=== PATIENT | male | born 1980 | race Caucasian/White ===

== ENCOUNTER 2018-08-19 05:24 | Inpatient (IN) | payer OTHER ==
[2018-08-18 21:15] VITALS: BP 144/88
[~2018-08-19] VITALS: Ht 182.9 cm; Wt 215.5 kg
--- NOTE | ~2018-08-19 | O ---
[facility] [place] [address] OPERATIVE REPORT Name: JANNY MENDIETA Room #: 150-5 [facility]..#: [id number] Admission: 08/19/18 Attend Phys: Calvin Reid MD Discharge: Date of : 78 Report #: [id number] THIS REPORT FOR: //name// CC: ELLIE Reid Physician staff DATE OF SERVICE: 08/19/2018 PREOPERATIVE DIAGNOSIS: Left medial malleolar fracture. POSTOPERATIVE DIAGNOSIS: Left medial malleolar fracture. PROCEDURE: Left medial malleolus open reduction and internal fixation. SURGEON: Calvin Reid MD ALTERATION TAILOR: Lisa Taylor. ANESTHESIA: General. ESTIMATED BLOOD LOSS: Minimal. DRAINS: None. TOURNIQUET TIME: 30 minutes. The certified surgical technician was required due to the patient's obesity. DESCRIPTION OF PROCEDURE: The patient brought to the operating room, where he was placed under general anesthesia. Once under adequate general anesthesia, his left lower extremity was prepped and draped in sterile manner. The extremity was elevated, exsanguinated, tourniquet placed to 350 mmHg. A medial incision approximately 6 cm in length was made over the medial malleolus. Dissection was carried down to the medial malleolar fracture, which was subsequently identified and a drill hole was placed proximal to this. Subsequent reduction was then achieved with a bone reduction tenaculum. Excellent reduction was achieved. Once reduced, the fracture was fixed with 3 cannulated screws. Two 4.0 cannulated screws were placed, partial thread, first and then a fully threaded 4.5 mm cannulated screw was placed. Excellent fixation and alignment was achieved in this manner as verified under fluoroscopy. The wound was irrigated copiously and closed with 2-0 Vicryl in deep and subcutaneous tissues. [place] were used for the skin. The wounds were dressed with Xeroform, 4 x 4s, and sterile soft compressive dressing with a short leg cast was placed. Tourniquet was let down at 30 minutes. Toes were pink and warm with good capillary refill. There were no complications from the [facility] [address] [place] [address] OPERATIVE REPORT Name: JANNY MENDIETA Room #: 150-5 [facility]..#: [id number] Admission: 08/19/18 Attend Phys: Calvin Reid MD Discharge: Date of : 78 Report #: [id number] procedure. The patient tolerated the procedure well and went to recovery room without incident. By: [id number] Calvin Reid MD /nt
[~2018-08-19 05:24] MED LIST: ADVAIR HFA 230M12 GM INH; FLEXERIL PO; LAMICTAL200 MG PO; PERCOCET 7.5-31 EACH PO; PROAIR HFA8.5 GM INH
[2018-08-19 12:51] VITALS: BP 148/85
[2018-08-19] MEDS ORDERED: ASA5UEC PO (14:51)
[2018-08-19 15:42] VITALS: BP 148/85
[2018-08-19 19:30] VITALS: BP 144/88
[2018-08-20 06:41] VITALS: BP 136/79
[2018-08-20 08:17] VITALS: BP 135/71
[2018-08-20 13:08] VITALS: BP 145/85
[2018-08-20 15:33] LABS: HEMATOCRIT 41.2 % (42.0-52.0); HEMOGLOBIN 14.1 gm/dL (14.0-18.0); MCHC 34.1 g/dL (28.0-37.0); MCV 93.9 fL (80.0-100.0); RBC 4.39 mil/uL (4.50-6.00); WBC 8.6 thou/uL (4.0-11.0)
[2018-08-20 15:47] LABS: CALCIUM 9.1 mg/dL (8.5-10.1); CREATININE 1.1 mg/dL (0.7-1.3); MAGNESIUM 1.9 mg/dL (1.8-2.4); POTASSIUM 4.6 mmol/L (3.5-5.1)
== END 2018-08-20 20:30 | DRG 493 ==
LOC: OR 05:24 → TBA 05:24 → OR 06:33 → 4E 18:36 → OR 08-20 05:13 → 4E 08-20 20:30
PROVIDERS: Internal Medicine
PROC: 0QSH04Z Reposition Left Tibia with Internal Fixation Device, Open Approach (ICD-10-PCS; principal; 2018-08-19)
DX: S82.52XA Displaced fracture of medial malleolus of left tibia, initial encounter for closed fracture (principal); Z68.44 Body mass index [BMI] 60.0-69.9, adult; F32.9 Major depressive disorder, single episode, unspecified; J45.909 Unspecified asthma, uncomplicated; G47.33 Obstructive sleep apnea (adult) (pediatric); E66.01 Morbid (severe) obesity due to excess calories; Z88.1 Allergy status to other antibiotic agents; Z79.899 Other long term (current) drug therapy; W18.39XA Other fall on same level, initial encounter; Z79.82 Long term (current) use of aspirin; Y93.89 Activity, other specified; Y92.89 Other specified places as the place of occurrence of the external cause; Y99.8 Other external cause status
CPT/HCPCS: 10783; 50010; 50101; 50386; 50679; 51122; 51412; 56524; 56525; 57091; 57181; 62110; 62900; 70005

== ENCOUNTER 2018-08-20 17:22 | Inpatient (IN) | payer OTHER ==
[~2018-08-20] VITALS: Ht 182.9 cm; Wt 215.5 kg
--- NOTE | ~2018-08-20 | H ---
[facility] [place] [address] [place] [address] HISTORY AND PHYSICAL Name: JANNY MENDIETA Room #: 510-P ADM IN M.R.#: [id number] Admission: 08/20/18 Attend Phys: Agustin Robison MD Discharge: Date of : 78 Report #: [id number] THIS REPORT FOR: //name// CC: Agustin SPENCE DATE OF SERVICE: 08/20/2018 HISTORY AND PHYSICAL/POSTADMISSION PHYSICIAN EVALUATION HISTORY OF PRESENT ILLNESS: The patient is a 38-year-old white male with history of morbid obesity. He was at work in [place], [place], and apparently had a fall while at work. He was initially seen in the Emergency Room, placed in a soft splint. He was trying to get around with crutches. He was having more and more difficulty, unable to care for himself. He was able to fly back to [place], admitted to [facility], and noted to have a left medial malleolus fracture and underwent open reduction and internal fixation on 08/19/[address] Reid. He is limited to nonweightbearing for approximately 4 weeks. He has been on DVT prophylaxis with Lovenox. He is morbidly obese and has a history of obstructive sleep apnea. He has been admitted for acute in-hospital inpatient rehabilitation. Please see my consult note dictation from yesterday and Trisha Child's history and physical from today. Please see the noted past medical history, allergies, current medications, code status, habits, and social history. REVIEW OF SYSTEMS: No current complaints of chest pain, shortness of breath or abdominal discomfort. PHYSICAL EXAMINATION: GENERAL: A 38-year-old morbidly obese white male, no obvious distress. Alert and oriented. Cranial nerves grossly intact. Facies are symmetric. The patient was seen earlier. VITAL SIGNS: Temperature 98.7, blood pressure 145/85, respirations 18, pulse 90. HEENT: Appeared benign. CHEST: Sounded clear to auscultation. CARDIAC: Regular rate and rhythm. ABDOMEN: Bowel sounds positive, nontender, morbidly obese. MUSCULOSKELETAL: Functional range of motion of bilateral upper extremities, no tremors, offshore wind turbine technician are equal, strength 4 to 4-/5. Lower extremities, left lower extremity with hard cast, neurovascularly intact, can lift left lower extremity to antigravity. Right lower extremity strength is probably a grade 4+/5. He has been working on sliding board transfers with min assist. ASSESSMENT: [address] [address] HISTORY AND PHYSICAL Name: JANNY MENDIETA Room #: 510-P [facility] IN [facility]#: [id number] Admission: 08/20/18 Attend Phys: Agustin Robison MD Discharge: Date of : 78 Report #: [id number] 1. Left medial malleolar fracture, status post open reduction and internal fixation on 08/19/2018, nonweightbearing on left lower extremity. 2. Morbid obesity, 475 pounds. 3. Obstructive sleep apnea. 4. Deep venous thrombosis prophylaxis. The patient was switched by Orthopedics at the time of discharge and he is now on aspirin 325 mg 1 p.o. b.i.d. PLAN: From a postadmission physician evaluation perspective, there are no relevant changes since the preadmission screening. Please see the above review of prior and current medical and functional conditions and comorbidities. Please see the previous and current functional status. He was premorbidly fully independent. As far as risk of complications, this includes his medical comorbidities. He is on DVT prophylaxis with the aspirin b.i.d. as per Orthopedics. The initial plan of care involves the interdisciplinary acute inpatient rehabilitation program with PT and OT working with him, rehab nursing assisting regarding medication management, skin care prophylaxis, bowel and bladder issues, and nursing education. Case management will be involved as well as the interdisciplinary acute inpatient rehabilitation program. Measurable functional goals would be for the patient to become modified independent with transfers, mobility, ADLs, so that he can hopefully return back to his prior living situation. Prognosis is reasonably good with the estimated length of stay probably at least 1-2 weeks or depending progress. We will need to see how things work as far as trying to get him back into the home setting. Potential barriers would include his medical comorbidities and the equipment situation to get him back into the home setting. <ELECTRONICALLY SIGNED> By: Agustin Robison MD 08/28/18 1144 1347 1402 Agustin Robison MD /nt
--- NOTE | ~2018-08-20 | H ---
[facility] [place] [address] HISTORY AND PHYSICAL Name: JANNY MENDIETA Room #: 510-P [facility] IN ..#: [id number] Admission: 08/20/18 Attend Phys: Agustin Robison MD Discharge: 08/29/18 Date of : 78 Report #: [id number] THIS REPORT FOR: //name// CC: Agustin SPENCE DATE OF SERVICE: 08/20/2018 HISTORY OF PRESENT ILLNESS: This is a 38-year-old morbidly obese male who was admitted to the hospital after a fall while he was at work. He sustained a left medial malleolus fracture and he underwent an open reduction and internal fixation by Dr. Reid on 08/19/2018. He is no weightbearing for approximately 4 weeks on the left lower extremity. Due to his decline in functional mobility, he will be admitted to acute inpatient rehabilitation for physical and occupational therapies. Today, the patient reports increased in muscle spasms and cramping in the left ankle up to his left hip. His pain is very poorly controlled. He had a hives reaction with itching to the oxycodone and he was changed to hydrocodone and that is not controlling his pain as well per patient report. He has his home CPAP and wears that anytime he is resting. Otherwise, denies dizziness, headache. Denies cough, chest pain or shortness of air. Denies nausea or abdominal pain. He is constipated. Denies any urinary symptoms. He also reports chronic back pain. Denies any leg swelling. PAST MEDICAL HISTORY: Obesity, obstructive sleep apnea, COPD. ALLERGIES: ERYTHROMYCIN. CURRENT MEDICATIONS: Norflex 100 mg twice a day, Colace 100 mg twice a day, Benadryl 25 mg q.8 hours p.r.n., hydrocodone two tablets q.4 hours p.r.n., Lamictal 200 mg at bedtime, Flexeril 10 mg at bedtime, aspirin 325 twice a day, milk of mag 10 mL daily p.r.n., Senokot 8.6 mg daily p.r.n. CODE STATUS: Full code. HABITS: He is a nonsmoker, no illicit drug use, has alcohol on social occasions. SOCIAL HISTORY: The patient lives in a duplex with his . There is one threshold step to enter and then all living is on 1 level. He utilized no assistive device premorbidly. He was independent with all ADLs and shares IADLs with his . He was driving, premorbid. 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 REVIEW OF SYSTEMS: Remainder of his 14-point review of systems negative except as listed in HPI. [facility] [address] [place] [address] HISTORY AND PHYSICAL Name: COLIN MENDIETABILL Velarde Room #: 510-P DIS IN M.R.#: [id number] Admission: 08/20/18 Attend Phys: Agustin Robison MD Discharge: 08/29/18 Date of : 78 Report #: [id number] PHYSICAL EXAMINATION: VITAL SIGNS: Blood pressure 145/85, respirations 18, pulse rate 90, temperature 97.8, he is 96% oxygen on room air. GENERAL: He is awake, alert. He is oriented x 4. He is in no acute distress. He is on room air. HEENT: Head is normocephalic. Eyes: EOMs are intact. No icterus. ENT: No sinus tenderness, no pharyngitis, no rhinorrhea. NECK: No lymphadenopathy. HEART: Regular rate and rhythm, S1, S2. CHEST: Diminished in the bases. No crackles, no wheeze. ABDOMEN: Morbid obesity. Bowel sounds are positive, soft, nontender. His weight is 475 pounds. SKIN: He does have hives on his anterior and posterior chest wall along with into his groin area, they seem to be resolving. MUSCULOSKELETAL: He has functional range of motion of bilateral upper extremities. He has no clonus in the wrist. No tremors. [place] are equal bilaterally. Strength upper extremities grossly 4/5 to 4-/5. Left lower extremity in hard cast, neurovascularly intact. Able to lift bilateral lower extremities to anti-gravity. Negative Homans sign on the right lower extremity. The patient was able to transfer with slide board and min assist. He has not been up to attempt ambulation yet. He requires min to mod assist with bed mobility. NEUROLOGIC: Cranial nerves 2-12 grossly intact. PSYCHIATRIC: Pleasant affect. LABORATORY DATA: From 08/21/2018, sodium 136, potassium 4.1, BUN 13, creatinine 0.9, calcium 8.8. WBC is 8.5, hemoglobin 13.3, hematocrit 39.6, platelets 225. IMPRESSION: 1. Left medial malleolar fracture, status post open reduction and internal fixation on 08/19/2018, no weightbearing left lower extremity for approximately 4 weeks. 2. Morbid obesity, 475 pounds. 3. Obstructive sleep apnea. PLAN: The patient is being admitted to acute inpatient rehabilitation unit for physical and occupational therapies. He has already been ordered through his workmen's bariatric lift chair, bariatric commode, bariatric bed and probable slide board along with a bariatric shower chair. Social work services will continue to follow for discharge planning needs. We will need to be able to transfer himself independently to return back to his prior level as his will not be home during the day to assist him. Hospitalist services will follow for acute medical issues. He will have Dr. Delgado evaluation for [facility] [address] [place] [address] HISTORY AND PHYSICAL Name: JANNY MENDIETA Room #: 510-P DIS IN ..#: [id number] Admission: 08/20/18 Attend Phys: Agustin Robison MD Discharge: 08/29/18 Date of : 78 Report #: [id number] neuropsychology testing. His muscle relaxers were adjusted today for better pain control, please see orders. <ELECTRONICALLY SIGNED> By: MARGE Phillips 08/29/18 1508 1119 1147 MARGE Phillips /nt
--- NOTE | ~2018-08-20 | HC ---
[facility] [address] [address] CONSULTATION Name: JANNY MENDIETA Room #: 510-P [facility] IN .R.#: [id number] Admission: 08/20/18 Attend Phys: Agustin Robison MD Discharge: Date of : 78 Report #: [id number] THIS REPORT FOR: //name// CC: Agustin SPENCE DATE OF SERVICE: 08/20/2018 HISTORY OF PRESENT ILLNESS: The patient is a 38-year-old white male with history of morbid obesity, was at work in [place], [place], apparently had a fall while at work. He was initially seen in the Emergency Room, placed in a soft splint, was trying to get around with crutches. He was having more and more difficulty, unable to care for himself. He was able to fly back to [place], was admitted to [facility], noted to have a left medial malleolus fracture and now has undergone open reduction and internal fixation on 08/19/2018, by Dr. Reid. He is limited to nonweightbearing for approximately 4 weeks. He is on DVT prophylaxis with Lovenox. He is morbidly obese and has history of obstructive sleep apnea. We are seeing him in rehabilitation medicine consultation. PAST MEDICAL HISTORY: As noted above. MEDICATIONS: Please see the full medication listing. This includes vitamins, herbals, and supplements per report. ALLERGIES: ERYTHROMYCIN BASE, CAUSING NAUSEA AND VOMITING. HABITS: Occasional alcohol usage, nonsmoker. SOCIAL HISTORY: Lives with in a duplex, one step in, which is really more of a threshold. Then, it is on one floor. He did not utilize any gait aids premorbidly. works. He was able to do all of his own ADLs. He did his own bathing. It sounds like his helped some with his pannus and proper cleaning premorbidly. REVIEW OF SYSTEMS: He did not offer any current complaints of chest pain, shortness of breath, or abdominal discomfort. Some discomfort in left ankle as expected. PHYSICAL EXAMINATION: GENERAL: Morbidly obese, pleasant 38-year-old white male in no obvious distress. He is noted to be 6 feet and 475 pounds. Facies are symmetric. HEENT: Appeared to be benign. EXTREMITIES: Functional range of motion of both upper extremities without obvious focal weakness. DTRs are 1. ABDOMEN: Morbidly obese with a significant pannus. [address] [address] CONSULTATION Name: JANNY MENDIETA Room #: 510-P [facility] IN ..#: [id number] Admission: 08/20/18 Attend Phys: Agustin Robison MD Discharge: Date of : 78 Report #: [id number] NEUROLOGIC: Right lower extremity, no obvious focal weakness. Left lower extremity, he has the short leg cast in place. Skin, wiggle his toes. Bed mobility, standby assistance [id number] is max assist. He could stand with a roller walker for just a few seconds. He did better; however, with the sliding board and was able to scoot with more of a min assist. ASSESSMENT: A 38-year-old white male with the following problem list: 1. Left medial malleolar fracture, status post open reduction and internal fixation on 08/19/2018, nonweightbearing. 2. Morbid obesity, 475 pounds. 3. Obstructive sleep apnea. 4. Deep venous thrombosis prophylaxis. PLAN: Agree he would benefit from a short acute in-hospital inpatient rehabilitation stay. Discussion with the patient's . Goal would be to maximize independence at a wheelchair level utilizing the sliding board. Depending upon progress may need to consider hospital bed and a bariatric commode. These equipment issues will need to be worked on and assessed while he is on the rehab pan. Insurance precertification to be obtained. Discussion with the patient and , who were in full agreement of plan. <ELECTRONICALLY SIGNED> By: gAustin Robison MD 08/28/18 1144 1616 0010 Agustin Robison MD /nt
--- NOTE | ~2018-08-20 | PLAN ---
[facility] [place] [address] REHAB UNIT PLAN OF CARE Name: JANNY MENDIETA Room #: 510-P ADM IN M.R.#: [id number] Admission: 08/20/18 Attend Phys: Agustin Robison MD Discharge: Date of : 78 Report #: [id number] THIS REPORT FOR: //name// CC: Agustin SPENCE DATE OF SERVICE: 08/22/2018 SUBJECTIVE: The patient is seen back today in followup. He is in no distress. OBJECTIVE: VITAL SIGNS: Last recorded temperature 98.2, pulse 86, respirations 18, blood pressure 127/80. He is alert, pleasant, oriented. HEENT: Appeared to be benign. CHEST: Sounded clear. CARDIAC: Regular rate and rhythm. ABDOMEN: Bowel sounds positive, nontender. EXTREMITIES: Right calf, no swelling. Has good strength in right lower extremity. Left lower extremity cast is in place, can wiggle the toes. He is independent with bed mobility, but mod assist as needed with bed to chair transfers. Upper body dressing, supervision, lower body dressing is max assist. The bed to chair transfers are utilizing the sliding board. ASSESSMENT: 1. Left medial malleolar fracture, status post open reduction and internal fixation on 08/19/2018, nonweightbearing. 2. Morbid obesity, 475 pounds. 3. Obstructive sleep apnea. 4. Deep venous thrombosis prophylaxis, he is on aspirin b.i.d. PLAN: The overall plan of care is based on the preadmission screen, post-admission physician evaluation and information garnered from therapy assessments. 1. Estimated length of stay is probably at least 1-2 weeks pending progress. 2. Medical prognosis is reasonably good. 3. Anticipated interventions includes the interdisciplinary acute inpatient rehabilitation program with PT, OT, rehab nursing working with him and the interdisciplinary acute inpatient rehabilitation program. 4. Anticipated functional outcomes would be for him to become modified independent with basic transfers utilizing a sliding board or stand pivot and arranging via a proper equipment so he can return back home with his , checking in on him. 5. Discharge destination would be home with as noted above. 6. Expected therapy by discipline [address] [address] REHAB UNIT PLAN OF CARE Name: JANNY MENDIETA Room #: 510-P ADM IN [facility].#: [id number] Admission: 08/20/18 Attend Phys: Agustin Robison MD Discharge: Date of : 78 Report #: [id number] includes PT and OT 1 to 1-1/2 hours per day each five days a week throughout the duration of the acute inpatient [facility] stay. <ELECTRONICALLY SIGNED> By: Agustin Robison MD 08/28/18 1144 0858 1450 Agustin Robison MD /PMT
--- NOTE | ~2018-08-20 | HC ---
[facility] [place] [address] CONSULTATION Name: JANNY MENDIETA Room #: 510-P [facility] IN ..#: [id number] Admission: 08/20/18 Attend Phys: Agustin Robison MD Discharge: 08/29/18 Date of : 78 Report #: [id number] THIS REPORT FOR: //name// CC: Agustin Robison ELLIE JORDY DATE OF SERVICE: 08/24/2018 PSYCHOLOGICAL CONSULTATION ATTENDING PHYSICIAN: Agustin Robison MD BIBLE READER: Tien Delgado, PhD CLINICAL PRESENTATION: The patient is a 38-year-old morbidly obese male admitted to the rehabilitation unit for an inpatient program to improve functional mobility and activities of daily living and self-care secondary to a left medial malleolar fracture. He is status post open reduction and internal fixation on 08/19/2018 and no weightbearing for approximately 4 weeks. The patient is morbidly obese at 475 pounds. He also has been diagnosed with obstructive sleep apnea. 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 He slipped on ice that led to his sustaining a fracture. The patient is without children. He is a college graduate. A prior history of treatment for depression/mood disorder is reported. He has been taking medication as a mood stabilizer for the last 8-9 years. Psychological consultation was requested to provide assistance in the assessment of mental status. TECHNIQUES UTILIZED: Clinical interview, review of medical records, staff consultation and behavioral observation. EXAMINATION FINDINGS: The patient was alert and cooperative with the assessment. He accurately described events surrounding his admission and his initial injury. He does not report auditory or visual hallucinations. There is no evidence of aphasia. His thoughts are logical and goal oriented. There is no evidence of thought disorder. He reported a mild degree of frustration associated with his recovery and need for extended treatment. He does not report subjective anxiety or depression at this time. Difficulty with sleep is reported because of the use of muscle relaxants and pain medication during the day. Feelings of lethargy, fatigue and tiredness associated with medication has resulted in daytime sleepiness, which has therefore affected his ability to maintain sleep at night. He does not report [facility] [address] [place] [address] CONSULTATION Name: JANNY MENDIETA Room #: 510-P [facility] IN M.R.#: [id number] Admission: 08/20/18 Attend Phys: Agustin Robison MD Discharge: 08/29/18 Date of : 78 Report #: [id number] difficulty with appetite. The patient reports that his mood is stable. He is not reporting irritability to an extent that is greater than his baseline given his current treatment regimen of Lamictal. DIAGNOSTIC IMPRESSION: Unspecified depressive disorder. RECOMMENDATIONS: Continued use of his medication for the variability in mood is indicated. I will provide psychological support as needed. However, the patient's current emotional state is within normal limits and consistent with baseline. He is not describing an aggravation of difficulty with depression, anxiety or management of anger or irritability. Thank you very much for allowing me to provide the consultation on this patient. <ELECTRONICALLY SIGNED> By: Tien Delgado, PhD 08/31/18 1649 1513 0115 Tien Delgado, PhD /nt
[~2018-08-20 17:22] MED LIST changes: +ASA5UEC PO
[2018-08-21 04:08] LABS: HEMATOCRIT 39.6 % (42.0-52.0); HEMOGLOBIN 13.3 gm/dL (14.0-18.0); MCH 31.3 pg (26.0-34.0); MCHC 33.4 g/dL (28.0-37.0); MCV 93.6 fL (80.0-100.0); RBC 4.23 mil/uL (4.50-6.00); RDW 13.1 % (10.5-14.5); WBC 8.5 thou/uL (4.0-11.0)
[2018-08-21 04:23] LABS: CALCIUM 8.8 mg/dL (8.5-10.1); CREATININE 0.9 mg/dL (0.7-1.3); POTASSIUM 4.1 mmol/L (3.5-5.1)
[2018-08-21 07:35] VITALS: BP 136/84
[2018-08-21 20:28] VITALS: BP 127/80
[2018-08-22 08:43] VITALS: BP 132/79
[2018-08-22 20:15] VITALS: BP 123/83
[2018-08-23 08:00] VITALS: BP 132/82
[2018-08-23 20:00] VITALS: BP 175/72
[2018-08-24 08:00] VITALS: BP 131/90
[2018-08-24 20:00] VITALS: BP 139/78
[2018-08-25 07:30] VITALS: BP 135/78
[2018-08-25 19:59] VITALS: BP 144/81
[2018-08-26 15:26] VITALS: BP 175/85
[2018-08-26 20:00] VITALS: BP 150/84
[2018-08-27 09:12] VITALS: BP 122/68
[2018-08-27 20:59] VITALS: BP 148/81
[2018-08-28 20:46] VITALS: BP 146/75
[2018-08-29 09:25] VITALS: BP 125/78
[2018-08-29] MEDS ORDERED: ORPHENADRINE C100 M2 PO ×3 (09:55→13:02)
[2018-08-29] MEDS ORDERED: COLACE100 MG PO ×3 (09:55→13:02)
[2018-08-29 10:22] VITALS: BP 146/75
[2018-08-29 11:54] VITALS: BP 146/75
[2018-08-29 12:40] VITALS: BP 146/75
== END 2018-08-29 14:29 | disposition home health service (06) | DRG 563 ==
PROVIDERS: Physical Medicine & Rehabilitation
DX: S82.52XA Displaced fracture of medial malleolus of left tibia, initial encounter for closed fracture (principal); Z68.44 Body mass index [BMI] 60.0-69.9, adult; E66.01 Morbid (severe) obesity due to excess calories; G47.33 Obstructive sleep apnea (adult) (pediatric); K59.00 Constipation, unspecified; M62.838 Other muscle spasm; F32.9 Major depressive disorder, single episode, unspecified; S82.402A Unspecified fracture of shaft of left fibula, initial encounter for closed fracture; S83.412A Sprain of medial collateral ligament of left knee, initial encounter; J44.9 Chronic obstructive pulmonary disease, unspecified; Z88.1 Allergy status to other antibiotic agents; Z79.899 Other long term (current) drug therapy; Z79.82 Long term (current) use of aspirin; Z99.81 Dependence on supplemental oxygen; W00.0XXA Fall on same level due to ice and snow, initial encounter; Y93.89 Activity, other specified; Y92.89 Other specified places as the place of occurrence of the external cause; Y99.8 Other external cause status
CPT/HCPCS: 10112